=== PATIENT | male | born 1945 | race Caucasian/White ===

== ENCOUNTER 2017-01-12 18:39 | Emergency (ER) | payer MEDICARE, BC ==
[2017-01-12 15:34] LABS: BASOPHILS 1.1 %; BASOPHILS ABSOLUTE 0.08 10/3/uL (0.0-0.16); EOSINOPHILS 5.1 %; EOSINOPHILS ABSOLUTE 0.36 10/3/uL (0.0-0.53); ER CBC TAT 0 Hrs 03 Mins; HEMATOCRIT 44.6 % (40.0-51.0); HEMOGLOBIN 15.9 g/dL (13.6-17.8); IMMATURE GRANULOCYTES 0.1 %; IMMATURE GRANULOCYTES ABSOLUTE 0.01 10/3/uL (0.0-0.11); LYMPHOCYTES 29.2 %; LYMPHOCYTES ABSOLUTE 2.05 10/3/uL (0.67-4.30); MEAN CORPUSCULAR HEMOGLOB 31.7 pg (26.0-34.0); MEAN PLATELET VOLUME 11.1 fL (9.2-13.0); MONOCYTES ABSOLUTE 0.77 10/3/uL (0.21-1.20); NEUTROPHILS 53.5 %; NEUTROPHILS ABSOLUTE 3.75 10/3/uL (2.02-8.40); PLATELET COUNT 206 10/3/uL (150-400); RBC DISTRIBUTION WIDTH 12.6 % (12.0-16.0); RED CELL COUNT 5.02 10/6/uL (4.7-6.1)
[2017-01-12 15:35] LABS: MANUAL DIFF NO %; MEAN CORPUS HGB CONC 35.7 g/dL (32.0-36.0); MEAN CORPUSCULAR VOLUME 88.8 fL (80-100)
[2017-01-12 15:42] LABS: INTERNATIONAL NORMAL RATI 1.1 UNITS (-); PARTIAL THROMBO TIME 26.4 SEC (22.5-37.2); PROTIME (NOT ORD) 13.7 SEC (12.0-14.5)
[2017-01-12 15:53] LABS: CALCIUM, SERUM 8.9 MG/DL (8.5-10.4); CHEST PAIN PROFILE TAT 0 Hrs 22 Mins; CHLORIDE, SERUM 106 MMOL/L (96-112); CO2 (CARBON DIOXIDE) 28 MMOL/L (24-34); CREATININE 1.33 MG/DL (0.70-1.30); GFR AFRICAN AMERICAN 61 ML/MIN (>=60); GFR NON AFRICAN AMERICAN 53 ML/MIN (>=60); GLUCOSE, SERUM 103 MG/DL (60-99); SODIUM, SERUM 142 MMOL/L (135-148); TROPONIN I <0.02 NG/ML (<0.05)
[2017-01-12 15:54] LABS: BUN (BLOOD UREA NITROGEN) 24 MG/DL (6-23)
[~2017-01-12 18:39] MED LIST: ASAB PO; BRILINTA90 MG PO; COREG3 PO; I-CAP; I20 PO; IMDUR30 PO; LIPITOR80 MG PO; METHOC500B PO; NITROQUICK0.4 MG SL; NORV5 PO; PLAVIX PO; PRILO PO; ULTRAM50 PO; VICODINTAB PO; ZESTORETIC PO
== END 2017-01-12 19:03 | disposition home or self-care (01) ==
LOC: ER 18:39
PROVIDERS: Emergency Medicine
DX: R07.89 Other chest pain (principal); I25.10 Atherosclerotic heart disease of native coronary artery without angina pectoris; I10 Essential (primary) hypertension; K21.9 Gastro-esophageal reflux disease without esophagitis; E11.9 Type 2 diabetes mellitus without complications; Z85.038 Personal history of other malignant neoplasm of large intestine; Z90.89 Acquired absence of other organs; Z95.5 Presence of coronary angioplasty implant and graft; Z88.5 Allergy status to narcotic agent; Z79.82 Long term (current) use of aspirin; Z79.899 Other long term (current) drug therapy
CPT/HCPCS: 71020; 80048; 83735; 84484; 85025; 85610; 85730; 99285; A9270-GY